=== PATIENT | female | born 1990 | race Asian ===

== ENCOUNTER 2016-09-07 05:06 | Inpatient (IN) | payer MEDICAID ==
[~2016-09-07] VITALS: Ht 152.4 cm; Wt 67.7 kg
[2016-09-07 05:52] LABS: Basophils # (auto) 0 uL; Basophils % (auto) 0.3 % (0.0-2.0); CONDITION Y; Eosinophils # (auto) 0 uL; Eosinophils % (auto) 0.6 % (0.0-7.0); Hematocrit 41.2 % (36.0-46.0); Hemoglobin 14.2 g/dL (12.2-16.2); Lymphocytes # (auto) 1.5 uL; Lymphocytes % (auto) 18.7 % (10.0-50.0); Mean Corpuscular Hemoglobin 28.8 pg (28.0-32.0); Mean Corpuscular Hgb Conc. 34.5 g/dL (32.0-36.0); Mean Corpuscular Volume 83.5 fL (80.0-100.0); Mean Platelet Volume 8.7 fL (7.4-10.4); Monocytes # (auto) 0.3 uL; Monocytes % (auto) 4.1 % (0.0-12.0); Neutrophils # (auto) 6.1 uL; Neutrophils % (auto) 76.3 % (37.0-80.0); Platelet Count (auto) 341 10^3/uL (140-450); Red Cell Distribution Width 12.9 % (11.6-16.0); White Blood Cell 8.1 10^3/uL (4.4-10.8)
[2016-09-07 06:01] LABS: INR 0.98 (0.9-1.15); Prothrombin Time 10.7 sec (9.37-12.3)
[2016-09-07 06:06] LABS: Urine Bilirubin Negative (Negative); Urine Color Yellow (Yellow); Urine Glucose Normal (Normal); Urine Ketone Negative (Negative); Urine Mucus FEW (None Seen); Urine Nitrite Negative (Negative); Urine RBC 131 /hpf (0 - 4); Urine Squamous Epithelial Cell FEW /hpf (<5); Urine Urobilinogen Normal (Negative); Urine pH 5.5 (5.0-8.0)
[2016-09-07 06:07] LABS: Urine Blood 3+ /uL (Negative)
[2016-09-07 06:12] LABS: Potassium 3.8 mmol/L (3.5-5.1)
[2016-09-07 06:16] LABS: Albumin 4.1 g/dL (3.4-5.0); BUN/Creatinine Ratio 22.7; Calcium 8.9 mg/dL (8.5-10.1)
[2016-09-07 06:18] LABS: Bilirubin, Total 0.4 mg/dL (0.2-1.0); Total Protein 8.1 g/dL (6.4-8.2)
[2016-09-07] MEDS ORDERED: KETOROLAC TROMETH 30 MG/ML 1ML VIAL IV ONE (06:45)
[2016-09-07] MEDS ORDERED: ONDANSETRON HCL 4 MG/2 ML VIAL IV ONE (06:45)
[2016-09-07] MEDS ORDERED: SODIUM CHLORIDE 0.9% 1,000 ML IV ONE (06:45)
[2016-09-07] MEDS ORDERED: cefTRIAXone 1GM/50ML D5W 50 ML IV ONE (11:15)
[2016-09-07] MEDS ORDERED: MORPHINE SULF INJ 2 MG/ML SYRINGE 1ML IV PRN ×2 (11:30)
[2016-09-07] MEDS ORDERED: ONDANSETRON HCL 4 MG/2 ML VIAL IV PRN (11:30)
[2016-09-07] MEDS ORDERED: DOCUSATE SOD 100 MG CAP PO PRN (11:30)
[2016-09-07] MEDS ORDERED: HYDROcodone-ACET 5/325MG TAB PO PRN (11:30)
[2016-09-07] MEDS ORDERED: ACETAMINOPHEN 325 MG TAB PO PRN (11:30)
[2016-09-07] MEDS ORDERED: TEMAZEPAM 15 MG CAP PO PRN (11:30)
[2016-09-07] MEDS ORDERED: NITROGLYCERIN 0.4 MG SL TAB SL PRN (11:30)
[2016-09-07] MEDS: FAMOTIDINE 20 MG TAB PO SCH ×2 (11:45→21:31)
[2016-09-07] MEDS: SODIUM CHLORIDE 0.9% 1,000 ML IV SCH ×2 (11:45→20:05)
[2016-09-07] MEDS: MULTIPLE VITAMIN TAB PO SCH (11:45)
[2016-09-07 11:53] VITALS: BP 117/61
[2016-09-07 12:45] VITALS: BP 117/61
[2016-09-07 17:09] VITALS: BP 108/68
[2016-09-07 20:00] VITALS: BP 121/85
[2016-09-07 22:00] VITALS: BP 121/85
[2016-09-08] MEDS: SODIUM CHLORIDE 0.9% 1,000 ML IV SCH (04:06)
[2016-09-08 05:00] VITALS: BP 123/75
[2016-09-08 05:53] LABS: Basophils # (auto) 0 uL; Basophils % (auto) 0.3 % (0.0-2.0); CONDITION Y; Eosinophils # (auto) 0.1 uL; Eosinophils % (auto) 2.1 % (0.0-7.0); Hemoglobin 12.5 g/dL (12.2-16.2); Lymphocytes # (auto) 2.2 uL; Lymphocytes % (auto) 34.4 % (10.0-50.0); Mean Corpuscular Hgb Conc. 33.8 g/dL (32.0-36.0); Mean Corpuscular Volume 85.7 fL (80.0-100.0); Mean Platelet Volume 8.9 fL (7.4-10.4); Monocytes # (auto) 0.5 uL; Monocytes % (auto) 8.1 % (0.0-12.0); Neutrophils # (auto) 3.5 uL; Neutrophils % (auto) 55.1 % (37.0-80.0); Platelet Count (auto) 257 10^3/uL (140-450); Red Cell Distribution Width 13.1 % (11.6-16.0); White Blood Cell 6.3 10^3/uL (4.4-10.8)
[2016-09-08 06:16] LABS: Albumin 3.4 g/dL (3.4-5.0); Bilirubin, Total 0.6 mg/dL (0.2-1.0); Calcium 8.1 mg/dL (8.5-10.1); Potassium 3.5 mmol/L (3.5-5.1); Total Protein 6.5 g/dL (6.4-8.2)
[2016-09-08 08:57] VITALS: BP 127/76
[2016-09-08] MEDS ORDERED: cefTRIAXone 1GM/50ML D5W 50 ML IV SCH (09:00)
[2016-09-08] MEDS: MULTIPLE VITAMIN TAB PO SCH (09:35)
[2016-09-08] MEDS: FAMOTIDINE 20 MG TAB PO SCH (09:35)
[2016-09-08 12:27] VITALS: BP 114/68
[2016-09-08 13:00] VITALS: BP 114/68
== END 2016-09-08 13:30 | disposition home or self-care (01) | DRG 465 ==
LOC: ER 05:07 → OVERFLOW 05:08 → WEST WING 12:24
PROVIDERS: ADMIT Internal Medicine; ATTEND Internal Medicine
DX: N13.2 Hydronephrosis with renal and ureteral calculous obstruction (principal); E78.5 Hyperlipidemia, unspecified
CPT/HCPCS: 36415; 74176; 80053; 81001; 81025; 82150; 83690; 85025; 85610; 85730; 87086; 96361; 96365; 96375; J0696; J1885; J2405

== ENCOUNTER 2016-09-08 20:08 | Emergency (ER) | payer MEDICAID | END 2016-09-08 20:25 | disposition left against medical advice (07) | LOC: ER 20:09 | DX: R10.9 Unspecified abdominal pain (principal); Z53.21 Procedure and treatment not carried out due to patient leaving prior to being seen by health care provider ==